=== PATIENT | male | born 1960 | race Caucasian/White ===

== ENCOUNTER → 2018-08-05 | Outpatient (CLI) | payer OTHER ==
[~2018-08-05] MED LIST: AMOX1TAB12 PO; ASPI-496 PO; CHOL5000 PO; SIMV20TA3 PO
[2018-08-05 11:03] LABS: BASOPHILS # (AUTO) 0.03 x10^3/uL (0-0.1); BASOPHILS % (AUTO) 0 % (0-1); EOSINOPHILS % (AUTO) 2 % (1-7); LYMPHOCYTES # (AUTO) 1.59 x10^3/uL (1-3.4); LYMPHOCYTES % (AUTO) 17 % (22-44); MD NO; MEAN CORPUSCULAR HGB CONC 31.9 g/dL (33.2-36.2); MEAN CORPUSCULAR VOLUME 90.9 fL (81-97); MEAN PLATELET VOLUME 9.8 fL (7.4-10.4); MONOCYTES # (AUTO) 0.78 x10^3/uL (0.2-0.8); MONOCYTES % (AUTO) 8 % (2-9); NEUTROPHILS # (AUTO) 6.78 x10^3/uL (1.8-6.8); NEUTROPHILS % (AUTO) 72 % (42-75); PLATELET COUNT 230 x10^3/uL (130-400); RED BLOOD COUNT 5.38 x10^6/uL (4.38-5.82); RED CELL DISTRIBUTION WIDTH 13.8 % (9.4-14.8)
[2018-08-05 13:57] LABS: ALBUMIN 3.6 g/dL (3.4-5.0); ANION GAP 7 mmol/L (5-15); CALCIUM 9.3 mg/dL (8.5-10.1); CHLORIDE 107 mmol/L (98-107)
[2018-08-05 14:04] LABS: ALANINE AMINOTRANSFERASE 31 U/L (12-78); ALKALINE PHOSPHATASE 66 U/L (45-117); BILIRUBIN,TOTAL 0.7 mg/dL (0.2-1.0); TOTAL PROTEIN 7.4 g/dL (6.4-8.2)
== END | disposition home or self-care (01) ==
LOC: STAR 10:01
PROVIDERS: ATTEND Urology
DX: Z01.818 Encounter for other preprocedural examination (principal); C61 Malignant neoplasm of prostate
CPT/HCPCS: 36415; 80053; 85025; 93005

== ENCOUNTER 2018-08-12 05:51 | Inpatient (IN) | payer OTHER ==
[~2018-08-12] VITALS: Ht 185.4 cm; Wt 105.0 kg
[2018-08-12] MEDS ORDERED: BUPIVACAINE/PF 0.25% ONE (06:46)
[2018-08-12] MEDS ORDERED: OPIUM/BELLADONNA SUPP.RECT 16.2-60 MG ONE ×2 (06:47→11:49)
[2018-08-12] MEDS ORDERED: EPINEPHRINE 1 MG/ML, 1ML ONE (06:47)
[2018-08-12] MEDS ORDERED: LACTATED RINGERS 1,000 ML IV SCH (06:47)
[2018-08-12] MEDS ORDERED: THROMBIN 5,000 UNIT VIAL TP ONE (06:47)
[2018-08-12] MEDS ORDERED: GABAPENTIN 300 MG CAPSULE PO STA (06:48)
[2018-08-12] MEDS ORDERED: ACETAMINOPHEN 500 MG TABLET PO STA (06:48)
[2018-08-12] MEDS ORDERED: FENTANYL PF 250 MCG/5ML ONE ×3 (06:52→10:30)
[2018-08-12] MEDS ORDERED: MIDAZOLAM 1 MG/ML, 2ML ONE (06:52)
[2018-08-12] MEDS ORDERED: PROMETHAZINE 25 MG SUPP PR PRN (07:30)
[2018-08-12] MEDS ORDERED: PROMETHAZINE 12.5 MG SUPP PR PRN (07:30)
[2018-08-12] MEDS ORDERED: FENTANYL PF 100 MCG/2ML IV PRN (07:30)
[2018-08-12] MEDS ORDERED: LABETALOL 5MG/ML, 20ML IV PRN (07:30)
[2018-08-12] MEDS ORDERED: PROMETHAZINE 25 MG/ML, 1ML IV PRN (07:30)
[2018-08-12] MEDS ORDERED: HYDROmorphone 2 MG/ML, 1ML IVPush PRN (07:30)
[2018-08-12] MEDS ORDERED: MEPERIDINE/PF 25MG/0.5ML IVPush PRN (07:30)
[2018-08-12] MEDS ORDERED: MORPHINE SULFATE 4 MG/ML, 1ML IVPush PRN (07:30)
[2018-08-12] MEDS ORDERED: ONDANSETRON ODT 8 MG PO PRN (07:30)
[2018-08-12] MEDS ORDERED: ONDANSETRON 2MG/ML, 2ML IV PRN (07:30)
[2018-08-12] MEDS ORDERED: hydrALAzine 20 MG/ML, 1ML IV PRN (07:30)
[2018-08-12] MEDS ORDERED: PROMETHAZINE 25 MG/ML, 1ML IM PRN ×2 (07:30)
[2018-08-12] MEDS ORDERED: PROPOFOL 10 MG/ML, 20ML ONE (08:11)
[2018-08-12] MEDS ORDERED: ROCURONIUM 10MG/ML,5ML ONE (08:11)
[2018-08-12] MEDS ORDERED: CEFAZOLIN 1,000 MG ONE ×3 (08:11→09:46)
[2018-08-12] MEDS ORDERED: NEOSTIGMINE 1 MG/ML, 10ML ONE (08:11)
[2018-08-12] MEDS ORDERED: GLYCOPYRROLATE 0.2MG/1ML, 5ML ONE (08:11)
[2018-08-12] MEDS ORDERED: OXYcodone 5 MG/5 ML ORAL.SOL UDC ONE (11:49)
[2018-08-12] MEDS ORDERED: FENTANYL PF 100 MCG/2ML ONE (11:49)
[2018-08-12] MEDS ORDERED: ONDANSETRON 2MG/ML, 2ML ONE (12:41)
[2018-08-12] MEDS: ACETAMINOPHEN 500 MG TABLET PO SCH ×2 (13:30→19:39)
[2018-08-12] MEDS ORDERED: OPIUM/BELLADONNA SUPP.RECT 16.2-60 MG PR PRN (13:30)
[2018-08-12 14:08] VITALS: BP 154/83
[2018-08-12] MEDS: MORPHINE SULFATE 4 MG/ML, 1ML IVPush PRN ×5 (14:17→23:56)
[2018-08-12] MEDS: OXYcodone IR 5MG TABLET PO PRN ×3 (14:38→23:10)
[2018-08-12] MEDS: POTASSIUM CHLORIDE 20 MEQ in SODIUM CHLORIDE 0.45% 1,000 ML IV SCH ×2 (15:52→23:56)
[2018-08-12 19:31] VITALS: BP 153/82
[2018-08-13 00:15] VITALS: BP 129/73
[2018-08-13] MEDS: MORPHINE SULFATE 4 MG/ML, 1ML IVPush PRN (02:27)
[2018-08-13] MEDS: ACETAMINOPHEN 500 MG TABLET PO SCH ×4 (02:28→20:41)
[2018-08-13] MEDS: OXYcodone IR 5MG TABLET PO PRN ×3 (03:29→20:41)
[2018-08-13 04:00] VITALS: BP 122/71
[2018-08-13 05:47] LABS: CHLORIDE 107 mmol/L (98-107)
[2018-08-13 05:48] LABS: ANION GAP 7 mmol/L (5-15); CALCIUM 8.3 mg/dL (8.5-10.1); CREATININE 0.99 mg/dL (0.7-1.3)
[2018-08-13 07:24] VITALS: BP 111/68
[2018-08-13] MEDS: ENOXAPARIN 40 MG/0.4 ML SQ SCH (07:50)
[2018-08-13] MEDS: POTASSIUM CHLORIDE 20 MEQ in SODIUM CHLORIDE 0.45% 1,000 ML IV SCH ×3 (07:50→23:35)
[2018-08-13] MEDS: DOCUSATE 100 MG CAPSULE PO SCH ×2 (11:09→20:40)
[2018-08-13 12:29] VITALS: BP 108/66
[2018-08-13] MEDS ORDERED: ONDANSETRON 2MG/ML, 2ML IVPush PRN (17:30)
[2018-08-13 19:42] VITALS: BP 122/68
[2018-08-14] MEDS: ACETAMINOPHEN 500 MG TABLET PO SCH ×4 (01:51→20:10)
[2018-08-14] MEDS: OXYcodone IR 5MG TABLET PO PRN ×3 (01:51→19:27)
[2018-08-14 01:52] VITALS: BP 139/71
[2018-08-14 06:09] LABS: ANION GAP 7 mmol/L (5-15); CALCIUM 8.7 mg/dL (8.5-10.1); CHLORIDE 105 mmol/L (98-107)
[2018-08-14 08:00] VITALS: BP 158/83
[2018-08-14] MEDS: DOCUSATE 100 MG CAPSULE PO SCH ×3 (08:10→20:11)
[2018-08-14] MEDS: ENOXAPARIN 40 MG/0.4 ML SQ SCH (08:12)
[2018-08-14] MEDS: POTASSIUM CHLORIDE 20 MEQ in SODIUM CHLORIDE 0.45% 1,000 ML IV SCH ×2 (10:24→16:20)
[2018-08-14 14:23] VITALS: BP 155/91
[2018-08-14 18:25] VITALS: BP 142/84
[2018-08-15] MEDS: POTASSIUM CHLORIDE 20 MEQ in SODIUM CHLORIDE 0.45% 1,000 ML IV SCH ×2 (00:25→08:30)
[2018-08-15 01:07] VITALS: BP 137/82
[2018-08-15] MEDS: ACETAMINOPHEN 500 MG TABLET PO SCH ×2 (01:44→07:28)
[2018-08-15] MEDS: DOCUSATE 100 MG CAPSULE PO SCH ×2 (05:51→11:46)
[2018-08-15 06:08] LABS: CHLORIDE 107 mmol/L (98-107)
[2018-08-15 06:13] LABS: ANION GAP 7 mmol/L (5-15); CALCIUM 8.8 mg/dL (8.5-10.1); CREATININE 0.95 mg/dL (0.7-1.3)
[2018-08-15 06:40] VITALS: BP 139/90
[2018-08-15] MEDS: ENOXAPARIN 40 MG/0.4 ML SQ SCH (07:29)
[2018-08-15] MEDS ORDERED: OXYC5CAP2 PO (12:17)
[2018-08-15] MEDS ORDERED: ONDA4TAB13 SL (12:17)
== END 2018-08-15 13:00 | disposition home or self-care (01) | DRG 708 ==
LOC: OUT 05:51 → 4NOR 13:00 → OUT 13:04 → 4NOR 13:04
PROVIDERS: ADMIT Urology; ATTEND Urology
PROC: 0VB34ZZ Excision of Bilateral Seminal Vesicles, Percutaneous Endoscopic Approach (ICD-10-PCS; 2018-08-12)
PROC: 0VBQ4ZZ Excision of Bilateral Vas Deferens, Percutaneous Endoscopic Approach (ICD-10-PCS; 2018-08-12)
PROC: 8E0W4CZ Robotic Assisted Procedure of Trunk Region, Percutaneous Endoscopic Approach (ICD-10-PCS; 2018-08-12)
PROC: 0VT04ZZ Resection of Prostate, Percutaneous Endoscopic Approach (ICD-10-PCS; principal; 2018-08-12 07:30)
DX: C61 Malignant neoplasm of prostate (principal); K66.0 Peritoneal adhesions (postprocedural) (postinfection); Z88.5 Allergy status to narcotic agent; Z82.49 Family history of ischemic heart disease and other diseases of the circulatory system; Z83.3 Family history of diabetes mellitus; Z82.3 Family history of stroke
CPT/HCPCS: 36415; 80048; 85014; 85018; 86850; 86900; 88309; C1729; G0378; J0171; J0690; J1650; J2250; J2405; J2704; J2710; J3010; J3480; J3490; C1760; J2270; J7120